=== PATIENT | female | born 1990 | race Two or more races ===

== ENCOUNTER 2017-02-11 22:12 | Inpatient (IN) ==
[2017-02-11 23:40] LABS: Apearance,Urine CLEAR (Clear); Bacteria,Urine Occasional /HPF (Few); Bilirubin,Urine Negative (Negative); Blood, Urine Small mg/dL (Negative); Glucose,Urine (UA) Negative (Negative); Hyaline Casts,Urine 1 /LPF (0-3); Ketones,Urine Negative (Negative); Mucus,Urine Occasional /LPF (Occasional); Nitrite,Urine Negative (Negative); Protein,Urine Negative; RBC,Urine 26 /HPF (0-4); Renal Epithelial Cells,Urine Occasional /HPF (<1); Squamous Epithelial Cell,Urine Occasional /HPF (0-10); Urine Color Yellow (Yellow); Urine Specific Gravity 1.011 (1.001-1.035); Urine Urobilinogen < 2.0 EU/DL (0.2-1.0); WBC,Urine 5 /HPF (0-6)
[2017-02-12] MEDS ORDERED: LACTATED RINGERS 1,000 ML IV ONE (00:25)
[2017-02-12] MEDS ORDERED: TERBUTALINE 1 MG/1 ML VIAL SUBCUT PRN (00:25)
[2017-02-12] MEDS ORDERED: BUTORPHANOL 2 MG/ML VIAL IM PRN (00:26)
[2017-02-12] MEDS ORDERED: CITRIC ACID/SODIUM CITRATE 30 ML UDCUP PO PRN (00:46)
[2017-02-12] MEDS ORDERED: LACTATED RINGERS 1,000 ML IV SCH ×2 (01:00→10:00)
[2017-02-12 01:32] LABS: Basophils % 0.3 % (0.0-0.8); Eosinophils # 0.2 10*3/uL (0.0-0.87); Eosinophils % 1.8 % (0.00-10.9); Hematocrit 28.8 VOL% (35.7-47.0); Hemoglobin 9.1 GM/DL (12.0-16.0); Immature Granulocytes % 1.2 %; Immature Granulocytes Absolute 0.13 #; Lymphocytes # 2.4 10*3/uL (1.4-4.0); Lymphocytes % 21.3 % (21.3-54.2); Mean Corpuscular HGB Conc 31.6 GM/DL (32-36); Mean Corpuscular Hemoglobin 25 PG (27-34); Mean Corpuscular Volume 80.4 FL (87-102); Mean Platelet Volume 11.5 FL (9.6-12.0); Monocytes # 1.1 10*3/uL (0.11-0.8); Monocytes % 9.4 % (1.7-12.7); NRBC # 0.02 10*3/uL; Neutrophils # 7.4 10*3/uL (1.4-7.4); Platelet Count 173 T/CUMM (130-400); Red Blood Count 3.58 MC/CUMM (3.8-5.5); Red Cell Distribution Width 13.9 % (9.3-17.3); White Blood Count 11.2 T/CUMM (4-12)
[2017-02-12 01:40] LABS: Alanine Aminotransferase 15 U/L (13-56); Albumin 2.6 G/DL (3.4-5.0); Alkaline Phosphatase 188 U/L (45-117); Aspartate Amino Transferase 14 U/L (0-37); Bilirubin,Total < 0.39 MG/DL (0.2-1.0); Blood Urea Nitrogen 6 MG/DL (7-18); Calcium 9.2 MG/DL (8.5-10.1); Glucose 78 MG/DL (74-106); Potassium 4.1 MMOL/L (3.5-5.1); Sodium 136 MMOL/L (136-145); Total Protein 7.2 G/DL (6.4-8.3)
[2017-02-12] MEDS ORDERED: ceFAZolin 2,000 MG in PREMIX 1 EACH IV ONE (07:00)
[2017-02-12] MEDS ORDERED: FAMOTIDINE 20 MG/2 ML VIAL IV ONE (07:00)
[2017-02-12] MEDS ORDERED: ACETAMINOPHEN 1,000 MG/100 ML VIAL IV ONE (07:48)
[2017-02-12] MEDS ORDERED: OXYTOCIN/LR 20 UNIT/1,000 ML BAG IV ONE ×3 (07:55→12:04)
[2017-02-12] MEDS ORDERED: TISSUE ADHESIVE 1 EACH APPLICATOR TOP ONE (07:57)
[2017-02-12] MEDS ORDERED: fentaNYL 100 MCG/2 ML VIAL ONE (09:34)
[2017-02-12] MEDS ORDERED: MIDAZOLAM 2 MG/2 ML VIAL ONE (09:35)
[2017-02-12] MEDS ORDERED: ONDANSETRON 4 MG/2 ML VIAL ONE (09:36)
[2017-02-12] MEDS ORDERED: MORPHINE 10 MG/10 ML VIAL ONE (09:36)
[2017-02-12] MEDS ORDERED: HYDROmorphone 2 MG/1 ML VIAL IV PRN (09:41)
[2017-02-12] MEDS ORDERED: diphenhydrAMINE 50 MG/1 ML VIAL IV PRN (09:41)
[2017-02-12] MEDS ORDERED: ONDANSETRON 4 MG/2 ML VIAL IV PRN ×2 (09:41→15:47)
[2017-02-12] MEDS ORDERED: hydrOXYzine HCL 25 MG/1 ML VIAL IM PRN (09:41)
[2017-02-12 09:42] LABS: Cord Arterial Blood HCO3 16.5 MMOL/L
[2017-02-12] MEDS ORDERED: MEPERIDINE 25 MG/1 ML VIAL IV ONE (09:42)
[2017-02-12 09:45] LABS: Cord Venous Blood HCO3 20.3 MMOL/L; Cord Venous Blood PO2 22.7
[2017-02-12 09:51] LABS: Apearance,Urine CLEAR (Clear); Bilirubin,Urine Negative (Negative); Blood, Urine Negative (Negative); Glucose,Urine (UA) Negative (Negative); Ketones,Urine Negative (Negative); Mucus,Urine Occasional /LPF (Occasional); Nitrite,Urine Negative (Negative); Protein,Urine Negative; RBC,Urine 2 /HPF (0-4); Squamous Epithelial Cell,Urine Occasional /HPF (0-10); Urine Color Straw (Yellow); Urine Specific Gravity 1.006 (1.001-1.035); Urine Urobilinogen < 2.0 EU/DL (0.2-1.0); WBC,Urine 1 /HPF (0-6)
[2017-02-12] MEDS ORDERED: SODIUM CHLORIDE 0.9% 1,000 ML IV SCH (10:00)
[2017-02-12] MEDS ORDERED: PROMETHAZINE 25 MG/1 ML VIAL IM ONE (11:09)
[2017-02-12] MEDS: ceFAZolin 1,000 MG in SYRINGE 1 EACH IV SCH ×2 (15:59→16:22)
[2017-02-12 17:05] LABS: Basophils % 0.2 % (0.0-0.8); Hemoglobin 9.3 GM/DL (12.0-16.0); Immature Granulocytes % 0.7 %; Immature Granulocytes Absolute 0.13 #; Lymphocytes % 5.1 % (21.3-54.2); Mean Corpuscular Hemoglobin 25 PG (27-34); Mean Corpuscular Volume 81.1 FL (87-102); Mean Platelet Volume 12.1 FL (9.6-12.0); Monocytes # 0.8 10*3/uL (0.11-0.8); Monocytes % 4.3 % (1.7-12.7); Neutrophils # 16.8 10*3/uL (1.4-7.4); Neutrophils % 89.7 % (38.7-73.9); Platelet Count 184 T/CUMM (130-400); Red Cell Distribution Width 13.9 % (9.3-17.3); White Blood Count 18.7 T/CUMM (4-12)
[2017-02-13] MEDS: ceFAZolin 1,000 MG in SYRINGE 1 EACH IV SCH ×2 (00:26→07:55)
[2017-02-13] MEDS: IBUPROFEN 800 MG TABLET PO PRN ×2 (04:05→15:35)
[2017-02-13 06:18] LABS: Basophils % 0.2 % (0.0-0.8); Eosinophils % 0.2 % (0.00-10.9); Hematocrit 25.2 VOL% (35.7-47.0); Hemoglobin 7.9 GM/DL (12.0-16.0); Immature Granulocytes % 0.6 %; Immature Granulocytes Absolute 0.07 #; Lymphocytes # 1.2 10*3/uL (1.4-4.0); Lymphocytes % 10.2 % (21.3-54.2); Mean Corpuscular HGB Conc 31.3 GM/DL (32-36); Mean Corpuscular Hemoglobin 26 PG (27-34); Mean Corpuscular Volume 81.8 FL (87-102); Mean Platelet Volume 11.5 FL (9.6-12.0); Monocytes % 8.3 % (1.7-12.7); Neutrophils # 9.7 10*3/uL (1.4-7.4); Neutrophils % 80.5 % (38.7-73.9); Platelet Count 150 T/CUMM (130-400); Red Blood Count 3.08 MC/CUMM (3.8-5.5)
[2017-02-13] MEDS: FERROUS SULFATE 325 MG TABLET PO SCH ×3 (08:40→21:06)
[2017-02-13] MEDS ORDERED: MAGNESIUM HYDROXIDE SUSP 30 ML UDCUP PO PRN (15:31)
[2017-02-14 08:05] VITALS: BP 124/70
[2017-02-14] MEDS: FERROUS SULFATE 325 MG TABLET PO SCH (09:12)
[2017-02-14] MEDS ORDERED: MEASLES/MUMPS/RUBELLA VACCINE 0.5 ML VIAL SUBCUT ONE (11:01)
== END 2017-02-14 12:10 | disposition home or self-care (01) | DRG 766 ==
LOC: N.LDOUT 22:12 → N.LD 22:13 → N.OB 02-12 12:31
PROVIDERS: ADMIT Obstetrics & Gynecology; ATTEND Obstetrics & Gynecology
PROC: LDCSECT (ICD-10-PCS; 2017-02-12 08:00)